=== PATIENT | female | born 1975 | race African-American/Black ===

== ENCOUNTER 2018-08-23 08:43 | Emergency (ER) | payer SELFPAY ==
[2018-08-23] MEDS ORDERED: ORPHENADRINE CITRATE 60 MG/2 ML ML IM ONE (09:01)
[2018-08-23] MEDS ORDERED: KETOROLAC TROMETHAMINE 60 MG/2 ML VIAL IM ONE (09:01)
[2018-08-23] MEDS ORDERED: ORPHENADRINE CITRATE 60 MG/2 ML ML ONE (09:03)
[2018-08-23 09:27] LABS: EOSINOPHILS % 3.1 % (0.0-6.8); MEAN CORPUSCULAR HEMOGLOBIN 32.1 pg (28.0-34.0); MONOCYTES % 6.2 % (0.0-11.0); NEUTROPHILS # 2.5 # k/uL (1.4-7.7)
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
[2018-08-23 09:35] LABS: eGFR (Non-African) > 60
[2018-08-23 10:16] VITALS: BP 123/79
== END 2018-08-23 10:14 | disposition home or self-care (01) ==
LOC: ED 08:43
DX: S39.012A Strain of muscle, fascia and tendon of lower back, initial encounter (principal); V43.52XA Car driver injured in collision with other type car in traffic accident, initial encounter; Y93.89 Activity, other specified; Y92.488 Other paved roadways as the place of occurrence of the external cause
CPT/HCPCS: 36415; 80053; 85025; 96372; 99283; 99284; J1885; J2360